=== PATIENT | male | born 1970 | race Caucasian/White ===

== ENCOUNTER 2020-07-20 08:45 | Emergency (ER) | payer SELFPAY ==
[2020-07-20 08:50] VITALS: BP 133/78; PULSE 97; RESP 16; TEMP 36.2; O2SAT 98; BMI 25.8
--- NOTE | 2020-07-20 09:12 | ED_ITS ---
HPI - Extremity Problem General: Chief complaint: Extremity Injury, Lower Stated complaint: LEFT KNEE PAIN Time Seen by Provider: 07/20/20 08:57 History of Present Illness: HPI Narrative: This patient is a 49-year-old male presenting with left knee pain. He says that he has been having problems with that knee for about 2 years and has been told that it was related to a meniscus tear. He recently moved and after unloading the moving truck and installing so me gregg he is having severe pain in the left knee and says his leg locks up . By this he means that he cannot extend it fully. He was told 2 years ago that he needed to have surgery but did not get it done. He like to be able to see an orthopedist here now that he lives in the area. MD Complaint: joint pain Onset (ago): day(s) (2 days of acute worsening but 2 years of chronic issues) Pain Consistency: constant Location: left and knee Quality: aching and dull Relieving factors: nothing Exacerbating factors: range of motion, weight bearing and walking Associated symptoms: Reports no associated symptoms; Deny chest pain Review of Systems Card: Denies: chest pain Resp: Denies: dyspnea or non-productive cough GI: Denies: abdominal pain Physical Exam Const: COMMON NORMALS: no acute distress, patient oriented x3, no limitations and alert GENERAL APPEARANCE: cooperative and comfortable HENMT: HEAD & SCALP: normal to inspection FACE & SINUS: normal facial exam Eye: GENERAL EYE: appearance normal, both eyes and all related structures Neck/C-Spine: COMMON NORMALS: supple, no meningeal signs and no JVD Chest: COMMONS NORMALS: normal inspection of the chest Resp: COMMON NORMALS: normal respiratory effort and No use of accessory muscles Cardio: COMMON NORMALS: no JVD Back/Pelvis: COMMON NORMALS: thoracic and lumbar spine normal to inspection Extremity: GENERAL: Yes normal exam except as noted LEFT LOWER EXTREMITY: Yes knee joint (Tender to palpation diffusely, no significant swelling noted, painful with any range of motion. Unable to determine instability due to patient's pain.) Left knee: Yes neurovascular exam (Distal pulses and sensation intact) Neuro: COMMON NORMALS: patient oriented x3, moves all extremities, no focal motor deficits and no sensory deficits noted SENSORIUM/ORIENTATION: Yes alert MENINGEAL SIGNS: Yes no meningeal signs Psych: COMMON NORMALS: mental status grossly normal, cooperative and normal affect Skin: COMMON NORMALS: no rashes or lesions noted and turgor normal GENERAL SKIN EXAM: no rashes or lesions noted and turgor normal Course ED course: Patient has been taking ibuprofen, 800 mg without relief. He has had surgery on the other knee and thinks that he took oxycodone with some relief. I told him I prescribed a small number of those and gave him a referral to orthopedics for further follow-up. He was advised to rest and not overuse the knee. Vital Signs: Vital signs: Vital Signs Temperature 97.2 F L 07/20/20 08:50 Pulse Rate 97 07/20/20 08:50 Respiratory Rate 16 07/20/20 08:50 Blood Pressure 133/78 07/20/20 08:50 Pulse Oximetry 98 07/20/20 08:50 Discharge Plan Discharge Patient Disposition: Home Clinical Impression: Acute internal derangement of knee Qualifiers: Laterality: left Qualified Code(s): M23.92 - Unspecified internal derangement of left knee Condition: Stable Prescriptions: New oxycodone-acetaminophen 5-325 mg tablet 1 tab PO Q6H PRN (Reason: pain) Qty: 10 RF: 0 Discharge Orders: Discharge Order (Routine); Ordered 07/20/20 Ordered By: Antonieta Avendaño Referrals: Amy Roldan MD [Physician] - 7-10 days (meniscus tear) Discharge Diet: Usual diet Discharge Activity: Limit activity as instructed Patient Instructions: Knee Pain (ED) Activity Restrictions/Additional Instructions: Limit bending and walking until pain improves. Use ibuprofen and ice to help reduce inflammation. Follow up with Dr. Roldan for further evaluation and management of the knee pain. Coding Level of Care Code ED [employer] for Bernie Desir
--- NOTE | 2020-07-20 10:16 | DCPLANNER ---
manager math was asked to schedule a follow up appointment for patient with ortho. manager math called the ortho clinic, spoke with Pat, gave clinic patients information. manager math was told that patients information would be printed and reviewed. Clinic will call patient with appointment information.
--- NOTE | 2020-07-25 08:00 | DCPLANNER ---
Patient has a follow up appointment scheduled for Sunday, July 26, [address] at 10:[address] Roldan. Clinic will call patient with appointment information.
--- NOTE | 2020-07-29 16:19 | DCPLANNER ---
Patient had a follow up appointment scheduled for 07.26.20 with ortho - patient did attend appointment.
== END 2020-07-20 09:27 | disposition home or self-care (01) ==
PROVIDERS: Emergency Provider Emergency Medicine
DX: M23.92 Unspecified internal derangement of left knee (principal)
CPT/HCPCS: 12345; 99281

== ENCOUNTER → 2020-07-26 10:27 | Outpatient (BNVA) | payer SELFPAY | PROVIDERS: Visit Provider Specialist | DX: M23.92 Unspecified internal derangement of left knee (principal) | CPT/HCPCS: 73560; 73565 ==